=== PATIENT | female | born 1975 | race Caucasian/White ===

== ENCOUNTER 2019-09-18 06:53 | Day surgery (SDC) | payer OTHER ==
[2019-09-18] MEDS ORDERED: Midazolam 1 MG/ML 2 ML SDV ONE (07:06)
[2019-09-18] MEDS ORDERED: Propofol 200 MG/20 ML SDV ONE (07:06)
[2019-09-18] MEDS ORDERED: fentaNYL 250 MCG/5 ML SDV ONE (07:06)
[2019-09-18] MEDS ORDERED: Rocuronium 100 MG/10 ML Syringe ONE (07:07)
[2019-09-18] MEDS ORDERED: Glycopyrrolate 0.2 MG/ML SDV ONE (07:07)
[2019-09-18] MEDS ORDERED: Neostigmine Methylsulfate 1 MG/ML 5 ML Syringe ONE (07:07)
[2019-09-18] MEDS ORDERED: Sodium Chloride 0.9% 20 ML ONE (07:07)
[2019-09-18] MEDS ORDERED: Phenylephrine/Normal Saline 100 MCG/ML 10 ML Syringe ONE (07:07)
[2019-09-18] MEDS ORDERED: ePHEDrine 50 MG/ML SDV ONE (07:07)
[2019-09-18] MEDS: Lactated Ringers 1,000 ML IV SCH ×3 (07:17→21:34)
[2019-09-18] MEDS ORDERED: Fluorescein 5 ML Vial ONE (07:31)
[2019-09-18] MEDS ORDERED: Scopolamine 1.5 MG Transdermal Patch TRDERM PRN (07:32)
[2019-09-18] MEDS ORDERED: 50% Dextrose in Water 50 ML Syringe IVPUSH PRN (07:33)
[2019-09-18] MEDS ORDERED: fentaNYL 100 MCG/2 ML SDV IVPUSH PRN ×2 (07:33→11:51)
[2019-09-18] MEDS ORDERED: Atropine 0.1 MG/ML 10 ML Syringe IVPUSH PRN ×2 (07:33)
[2019-09-18] MEDS ORDERED: EPINEPHrine 1:10,000 1 MG/10 ML Syringe IVPUSH PRN (07:33)
[2019-09-18] MEDS ORDERED: Albuterol 0.083% 2.5 MG/3 ML Neb Soln NEB PRN (07:33)
[2019-09-18] MEDS ORDERED: Naloxone 0.4 MG/ML Syringe IVPUSH PRN (07:33)
--- NOTE | 2019-09-18 07:34 | PCM.PREANE ---
Preanesthetic Assessment - Anesthesia/Transfusion/Family Hx Anesthesia History: Prior Anesthesia Without Reaction Family History of Anesthesia Reaction: No Transfusion History: No Prior Transfusion(s) Intubation History: Unknown - Review of Systems General: No Symptoms Pulmonary: No Symptoms Cardiovascular: No Symptoms Gastrointestinal: No Symptoms Neurological: No Symptoms Other: Reports: None - Physical Assessment Height: 5 ft 2 in Weight: 104.326 kg ASA Class: 2 Mental Status: Alert & Oriented x3 Airway Class: Mallampati = 2 Dentition: Reports: Normal Dentition Thyro-Mental Finger Breadths: 2 Mouth Opening Finger Breadths: 2 ROM/Head Extension: Full Lungs: Clear to Auscultation, Normal Respiratory Effort Cardiovascular: Regular Rate, Regular Rhythm - Allergies Allergies/Adverse Reactions: Allergies Allergy/AdvReac Type Severity Reaction Status Date / Time No Known Allergies Allergy Verified 09/14/19 14:36 - Blood Blood Available: No - Anesthesia Plan Pre-Op Medication Ordered: None - Acknowledgements Anesthesia Type Planned: General Anesthesia Pt an Appropriate Candidate for the Planned Anesthesia: Yes Alternatives and Risks of Anesthesia Discussed w Pt/Guardian: Yes Pt/Guardian Understands and Agrees with Anesthesia Plan: Yes PreAnesthesia Questionnaire HEENT History: Reports: None Cardiovascular History: Reports: Other (See Below) Other Cardiovascular History: varicose veins Respiratory History: Reports: None Gastrointestinal History: Reports: None Genitourinary History: Reports: None 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 OB/BYN History: uterovaginal prolapse Musculoskeletal History: Reports: None Neurological History: Reports: None Psychiatric History: Reports: Anxiety, Depression Endocrine/Metabolic History: Reports: Obesity/BMI 30+ Hematologic History: Reports: None Immunologic History: Reports: None Oncologic (Cancer) History: Reports: None Dermatologic History: Reports: None - Past Surgical History Head Surgeries/Procedures: Reports: None HEENT Surgical History: Reports: Adenoidectomy, Tonsillectomy Cardiovascular Surgical History: Reports: None Respiratory Surgical History: Reports: None GI Surgical History: Reports: Bariatric Procedure, Other (See Below) Other GI Surgeries/Procedures: gastric sleeve Female Surgical History: Reports: None Endocrine Surgical History: Reports: None Neurological Surgical History: Reports: None Musculoskeletal Surgical History: Reports: None Oncologic Surgical History: Reports: None Dermatological Surgical History: Reports: None - SUBSTANCE USE Smoking Status *Q: Never Smoker Recreational Drug Use History: No - HOME MEDS Home Medications: Home Meds Ascorbic Acid [Vitamin C] 250 mg CHEW DAILY 09/14/19 [History] Biotin 5,000 mcg PO DAILY 09/14/19 [History] Cholecalciferol (Vitamin D3) [Vitamin D3] 2,000 units PO DAILY 09/14/19 [History ] Multivitamin [Multivitamins] 1 tab PO DAILY 09/14/19 [History] Vitamin B Complex 1 tab PO DAILY 09/14/19 [History] buPROPion HCl [Wellbutrin Xl] 300 mg PO DAILY 09/14/19 [History] - CURRENT (IN HOUSE) MEDS Current Meds: Current Medications Lactated Ringer's (Ringers, Lactated) 1,000 mls @ 125 mls/hr IV ASDIRECTED IRMA Discontinued Medications Ephedrine Sulfate (Ephedrine Sulfate) Confirm Administered Dose 50 mg .ROUTE .STK-MED ONE Stop: 09/18/19 07:08 Fentanyl (Sublimaze) Confirm Administered Dose 250 mcg .ROUTE .STK-MED ONE Stop: 09/18/19 07:07 Glycopyrrolate (Robinul) Confirm Administered Dose 0.6 mg .ROUTE .STK-MED ONE Stop: 09/18/19 07:08 Sodium Chloride (Normal Saline) Confirm Administered Dose 20 mls @ as directed .ROUTE .STK-MED ONE Stop: 09/18/19 07:08 Midazolam HCl (Versed 1 Mg/Ml) Confirm Administered Dose 2 mg .ROUTE .STK-MED ONE Stop: 09/18/19 07:07 Neostigmine Methylsulfate (Neostigmine) Confirm Administered Dose 5 mg .ROUTE .STK-MED ONE Stop: 09/18/19 07:08 Phenylephrine HCl (Phenylephrine In Ns 100 Mcg/Ml) Confirm Administered Dose 1 mg .ROUTE .STK-MED ONE Stop: 09/18/19 07:08 Propofol (Diprivan 20 Ml) Confirm Administered Dose 200 mg .ROUTE .STK-MED ONE Stop: 09/18/19 07:07 Rocuronium [place]chel[place] (Zemuron) Confirm Administered Dose 100 mg .ROUTE .STK-MED ONE Stop: 09/18/19 07:08 Succinylcholine Chloride (Succinylcholine Chloride) Confirm Administered Dose 200 mg .ROUTE .STK-MED ONE Stop: 09/18/19 07:08
[2019-09-18 07:54] LABS: BLOOD UREA NITROGEN,BUN 6 mg/dL (7.0-18.0); CARBON DIOXIDE,CO2 26.1 mmol/L (21.0-32.0); CHLORIDE,CL 105 mmol/L (98-107); GLUCOSE RANDOM 91 mg/dL (74-106); POTASSIUM,K 3.8 mmol/L (3.5-5.1); SODIUM,NA 141 mmol/L (136-145)
[2019-09-18] MEDS ORDERED: Furosemide 40 MG/4 ML VIAL ONE (07:55)
[2019-09-18] MEDS ORDERED: fentaNYL 100 MCG/2 ML SDV ONE ×2 (09:22→10:32)
[2019-09-18] MEDS ORDERED: Ondansetron 4 MG/2 ML SDV ONE (10:36)
[2019-09-18] MEDS ORDERED: Dexamethasone 4 MG/ML 5 ML MDV ONE (10:36)
--- NOTE | 2019-09-18 11:32 | PCM.OPNOTE ---
- General Post-Op/Procedure Note Date of Surgery/Procedure: 09/18/19 Operative Procedure(s): total vaginal hysterectomy, vaginal vault suspension to uterosacral ligament, posterior colporrhaphy, perineorrhaphy, cystoscopy and left labial revision. Findings: 3rd degree uterine prolapse, 3rd degree rectocele, gaping introitus, asymmetric labia due to trauma. On cystoscopy there is no evidence of trauma to the bladder mucosa. There is copious flow of bright green urine from bilateral ureteral orifices. Tubes and ovaries appear normal. Pre Op Diagnosis: Incomplete uterovaginal prolapse, labial hypertrophy Post-Op Diagnosis: Same Anesthesia Technique: General ET Tube Primary Surgeon: Deya Edward Secondary Surgeon: Christopher Watt Anesthesia Provider: Donaldo Acharya Tube Inspector: Margy Khan Pathology: uterus, vaginal mucosa/perineal skin Fluid Replacement, Intraop: 2,300 Output, Urine Amount: 700 EBL in mLs: 350 Complications: None Known. Condition: Good Free Text/Narrative:: Intake & Output 09/17/19 09/18/19 09/18/19 22:59 06:59 14:59 Output Total 700 Balance -700
[2019-09-18] MEDS ORDERED: Ondansetron 4 MG/2 ML SDV IVPUSH PRN (11:35)
[2019-09-18] MEDS ORDERED: Promethazine 25 MG/ML SDV IM PRN (11:35)
[2019-09-18] MEDS ORDERED: HYDROmorphone 2 MG/ML Syringe ONE (11:49)
[2019-09-18] MEDS: HYDROmorphone 2 MG/ML Syringe IVPUSH ONE ×2 (11:52→12:05)
--- NOTE | 2019-09-18 12:28 | PCM.POSTAN ---
POST ANESTHESIA ASSESSMENT - MENTAL STATUS Mental Status: Alert, Oriented - VITAL SIGNS Vital Signs: Last Vital Signs Temp 36.1 C 09/18/19 11:24 Pulse 54 L 09/18/19 12:15 Resp 12 09/18/19 12:15 BP 118/69 09/18/19 12:15 Pulse Ox 96 09/18/19 12:15 - RESPIRATORY Respiratory Status: Respiratory Rate WNL, Airway Patent, O2 Saturation Stable - CARDIOVASCULAR CV Status: Pulse Rate WNL, Blood Pressure Stable - GASTROINTESTINAL GI Status: No Symptoms - PAIN Pain Score: 4 - POST OP HYDRATION Hydration Status: Adequate & Stable - OBSERVATIONS Free Text/Narrative:: No anesthesia problems
[2019-09-18] MEDS: Morphine 4 MG/ML Syringe IVPUSH PRN ×4 (13:22→23:21)
--- NOTE | 2019-09-18 14:12 | OR ---
SURGEON: Deya Edward M.D. DATE OF PROCEDURE: 09/18/2019 PREOPERATIVE DIAGNOSIS: Incomplete uterovaginal prolapse with rectocele and symptomatic labial hypertrophy. POSTOPERATIVE DIAGNOSIS: Incomplete uterovaginal prolapse with rectocele and symptomatic labial hypertrophy. PROCEDURES: Total vaginal hysterectomy with vaginal vault suspension to the uterosacral ligament, posterior colporrhaphy, perineorrhaphy, cystoscopy, and left labial reduction. COMPLICATIONS: None known. DISPOSITION: Stable to recovery. ESTIMATED BLOOD LOSS: 350 mL. FLUIDS: 2300 mL of crystalloid. URINE OUTPUT: 700 mL. FINDINGS: Third-degree uterine prolapse, 2nd- to 3rd-degree cystocele, 3rd- to 4th-degree rectocele with a gaping introitus. Fairly prominent left labial hypertrophy measuring greater than 7 cm, the right labia measures 4 cm. Upon cystoscopy, there was no evidence of any trauma to the bladder mucosa. There was copious flow of bright green urine from bilateral ureteral orifices. Upon inspection of the tubes and ovaries, they did appear normal. COMPLICATIONS: None known. DISPOSITION: Stable to recovery. BRIEF HISTORY: This is a 43-year-old female. She is G4, P4. She has been followed with pelvic organ prolapse. She has been doing physical therapy, pelvic floor exercises. She has been working on weight loss with good success. She states that she feels discomfort and irritation during intercourse. The external irritation is primarily from her enlarged labia. This also causes her discomfort when she is active and problems with pads and would like to have this addressed at the time of surgery. She continues to have pelvic pressure, discomfort of intercourse, and bowel dysfunction with difficulty initiating bowel movements. Due to all of these symptoms, she would like to proceed with surgical intervention. She has declined a pessary. The plan is to proceed with a total vaginal hysterectomy, posterior colporrhaphy, vaginal vault suspension, cystoscopy, and left labial reduction with a possibility of anterior colporrhaphy. Risks were discussed including bleeding; infection; injury to bowel, bladder, blood vessels, or other organs; risk of thromboembolic event; risk of change in sexual function; risk of dyspareunia; risk of recurrence of approximately 30%; risk of regret related to inability to conceive in the future. Understanding all these risks, she does desire to proceed. DESCRIPTION OF PROCEDURE: With the patient in dorsal lithotomy position, under adequate general endotracheal anesthesia, the perineum and vagina were prepped with Betadine and draped in the usual fashion for vaginal surgery. SCDs were in place. Sequeira catheter had been placed. An appropriate time-out was held. She received 2 g of Ancef IV. A weighted speculum was placed posteriorly and right angle retractors were placed to retract the vagina. The cervix was grasped with a Mc tenaculum and circumscribed using electrocautery. The vaginal mucosa was pushed away from the cervix. The posterior cul-de-sac was entered sharply. Zak-Auvard speculum was placed posteriorly. The anterior cul-de-sac was entered sharply without any difficulty and a right-angle retractor was placed anteriorly. She had good blood supply to all of her tissues, therefore, each pedicle for the hysterectomy was doubly clamped. Therefore, I doubly clamped, cut, and ligated the uterosacral ligaments bilaterally using a simple ligature followed by Khushboo ligature of 2-0 Polysorb. Three additional pedicles were taken on each side, doubly clamping, cutting, and ligating with a simple ligature followed by a Khushboo ligature of 2-0 Polysorb until the utero-ovarian ligaments were identified. These were doubly clamped, cut, and ligated using a free tie followed by a Khushboo ligature of 2-0 Polysorb. These were retained and inspected and were hemostatic. The pedicles of the broad ligament were inspected and were hemostatic. The uterosacral ligaments had been retained. Placing Toña clamps at the level of the uterosacral ligament, the uterosacral ligaments were identified more cephalad within the pelvis, they were palpated with a finger. The bowel was retracted and three sutures of 2-0 Ethibond were placed in the right and the left uterosacral ligaments with a simple tie placed in each. Cystoscopy was then performed after IV fluorescein had been given and with tension on each of the uterosacral ligaments. There was copious flow of bright green urine from bilateral ureteral orifices. There was also no evidence of any trauma to the bladder mucosa. This being completed, the bladder was drained. Sequeira catheter was replaced. The anterior vagina was very foreshortened, and I felt that with support of the apex, she did not require an anterior colporrhaphy. Again, the posterior vagina was also fairly short, and therefore, rather than proceeding directly with the posterior colporrhaphy, I felt it was most beneficial to proceed with suspending the vaginal apex to the uterosacral ligament, so the anterior and posterior arms were passed through the anterior muscularis layer of the vaginal cuff and the posterior arm to the posterior layer, placing the most cephalad stitch in the midline. Once all six of the sutures had been placed to the anterior and posterior vaginal cuff, they were tied, and there was excellent support of the vaginal mucosa. The overlying vaginal mucosa was then closed with a running lock suture of 0 Polysorb. This being completed, attention was then turned to the perineum where a triangular incision was made in the perineum, undermined with Metzenbaum scissors, and trimmed. Hydrodissection was then performed beneath the posterior vaginal mucosa, which was incised in the midline using Metzenbaum scissors up to approximately 2 cm from the vaginal cuff. The muscularis layer was then from the overlying vaginal mucosa and reapproximated in the midline using multiple interrupted mattress sutures of 2-0 Polysorb. Again, the vaginal mucosa was not trimmed due to the very short vagina and therefore the vaginal mucosa was then closed with a running lock suture of 0 Polysorb. This extended into the perineum to reapproximate the deep perineal tissue, bringing together the gaping introitus. The left labia minora was significantly hypertrophied, measuring greater than 7 cm and in fact inserting immediately adjacent to the point of closure of the introitus. Therefore, it was undermined and slightly released. The introitus was then closed with a running suture of 3-0 Monocryl followed by a subcuticular suture of the same. This being completed, there was excellent depth and support of the vagina. There was no remaining cystocele or rectocele. Attention was then turned to the left labia. It was carefully measured to match the opposing size and the desired reduction was traced with a marker and incised using a 15 blade scalpel. Using Metzenbaum scissors, it was further dissected leaving the remaining left labia symmetric with the right labia and in a normal size and contour. The deep tissue of the labia was then reapproximated using a running suture of 4-0 Monocryl. A subcuticular suture of the 4-0 Monocryl was utilized to reapproximate the skin. The vagina was then packed. Final sponge, needle, and instrument counts were reported as correct. There were no known complications. The patient was transferred to Recovery in good condition. KAVEH PEARCE /[id number]
[2019-09-18] MEDS: Acetaminophen/oxyCODONE 325-5 MG Tab PO PRN ×2 (16:36→21:41)
[2019-09-19] MEDS: Acetaminophen/oxyCODONE 325-5 MG Tab PO PRN ×3 (02:53→11:56)
[2019-09-19] MEDS: Morphine 4 MG/ML Syringe IVPUSH PRN ×4 (03:10→13:39)
[2019-09-19] MEDS: Lactated Ringers 1,000 ML IV SCH (05:36)
[2019-09-19 06:38] LABS: BLOOD UREA NITROGEN,BUN 5 mg/dL (7.0-18.0); CARBON DIOXIDE,CO2 27.1 mmol/L (21.0-32.0); CHLORIDE,CL 104 mmol/L (98-107); GLUCOSE RANDOM 94 mg/dL (74-106); POTASSIUM,K 4.2 mmol/L (3.5-5.1); SODIUM,NA 138 mmol/L (136-145)
[2019-09-19] MEDS ORDERED: Ketorolac 30 MG/ML SDV IVPUSH PRN (07:11)
--- NOTE | 2019-09-19 07:11 | PCM.SURGPN ---
- General Info Date of Service: 09/19/19 Date of Surgery/Procedure: 09/18/19 POD#: 1 Post-Op Diagnosis: incomplete uterovaginal prolapse. Functional Status: Reports: Pain Controlled, Tolerating Diet, Ambulating. Denies: Urinating (catheter just taken out.) - Review of Systems General: Reports: No Symptoms HEENT: Reports: No Symptoms Pulmonary: Reports: No Symptoms Cardiovascular: Reports: No Symptoms Gastrointestinal: Reports: No Symptoms Genitourinary: Reports: No Symptoms Musculoskeletal: Reports: No Symptoms Skin: Reports: No Symptoms Neurological: Reports: No Symptoms Psychiatric: Reports: No Symptoms - Patient Data Vitals - Most Recent: Last Vital Signs Temp 36.8 C 09/19/19 03:36 Pulse 64 09/19/19 03:36 Resp 19 09/19/19 03:36 BP 116/59 L 09/19/19 03:36 Pulse Ox 96 09/19/19 03:36 Weight - Most Recent: 104.326 kg I&O - Last 24 Hours: Intake & Output 09/18/19 09/19/19 09/19/19 22:59 06:59 14:59 Intake Total 675 1419 Output Total 300 850 Balance 375 569 Lab Results Last 24 Hrs: Laboratory Results - last 24 hr 09/18/19 09/18/19 09/18/19 Range/Units 07:17 07:17 07:17 WBC 7.69 (4.0-11.0) K/uL RBC 4.63 (4.30-5.90) M/uL Hgb 12.5 (12.0-16.0) g/dL Hct 39.1 (36.0-46.0) % MCV 84.4 (80.0-98.0) fL MCH 27.0 (27.0-32.0) pg MCHC 32.0 (31.0-37.0) g/dL RDW Std Deviation 43.9 (28.0-62.0) fl RDW Coeff of Mallorie 14 (11.0-15.0) % Plt Count 293 (150-400) K/uL MPV 12.10 H (7.40-12.00) fL Neut % (Auto) (48.0-80.0) % Lymph % (Auto) (16.0-40.0) % Citrus % (Auto) (0.0-15.0) % Eos % (Auto) (0.0-7.0) % Baso % (Auto) (0.0-1.5) % Neut # (Auto) (1.4-5.7) K/uL Lymph # (Auto) (0.6-2.4) K/uL Citrus # (Auto) (0.0-0.8) K/uL Eos # (Auto) (0.0-0.7) K/uL Baso # (Auto) (0.0-0.1) K/uL Nucleated RBC % 0.0 /100WBC Nucleated RBCs # 0 K/uL Sodium 141 (136-145) mmol/L Potassium 3.8 (3.5-5.1) mmol/L Chloride 105 (98-107) mmol/L Carbon Dioxide 26.1 (21.0-32.0) mmol/L BUN 6 L (7.0-18.0) mg/dL Creatinine 0.7 (0.6-1.0) mg/dL Est Cr Clr Drug Dosing 82.80 mL/min Estimated GFR (MDRD) > 60.0 ml/min Glucose 91 (74-106) mg/dL Calcium 8.5 (8.5-10.1) mg/dL HCG, Qual NEGATIVE (NEG) Blood Type Antibody Screen 09/18/19 09/19/19 09/19/19 Range/Units 07:17 06:05 06:05 WBC 13.24 H (4.0-11.0) K/uL RBC 4.07 L (4.30-5.90) M/uL Hgb 11.1 L (12.0-16.0) g/dL Hct 35.1 L (36.0-46.0) % MCV 86.2 (80.0-98.0) fL MCH 27.3 (27.0-32.0) pg MCHC 31.6 (31.0-37.0) g/dL RDW Std Deviation 44.9 (28.0-62.0) fl RDW Coeff of Mallorie 14 (11.0-15.0) % Plt Count 298 (150-400) K/uL MPV 12.10 H (7.40-12.00) fL Neut % (Auto) 66.9 (48.0-80.0) % Lymph % (Auto) 23.8 (16.0-40.0) % Citrus % (Auto) 9.1 (0.0-15.0) % Eos % (Auto) 0.1 (0.0-7.0) % Baso % (Auto) 0.1 (0.0-1.5) % Neut # (Auto) 8.9 H (1.4-5.7) K/uL Lymph # (Auto) 3.2 H (0.6-2.4) K/uL Citrus # (Auto) 1.2 H (0.0-0.8) K/uL Eos # (Auto) 0.0 (0.0-0.7) K/uL Baso # (Auto) 0.0 (0.0-0.1) K/uL Nucleated RBC % 0.0 /100WBC Nucleated RBCs # 0 K/uL Sodium 138 (136-145) mmol/L Potassium 4.2 (3.5-5.1) mmol/L Chloride 104 (98-107) mmol/L Carbon Dioxide 27.1 (21.0-32.0) mmol/L BUN 5 L (7.0-18.0) mg/dL Creatinine 0.8 (0.6-1.0) mg/dL Est Cr Clr Drug Dosing 72.45 mL/min Estimated GFR (MDRD) > 60.0 ml/min Glucose 94 (74-106) mg/dL Calcium 8.3 L (8.5-10.1) mg/dL HCG, Qual (NEG) Blood Type A POSITIVE Antibody Screen NEGATIVE Med Orders - Current: Current Medications Lactated Ringer's (Ringers, Lactated) 1,000 mls @ 125 mls/hr IV ASDIRECTED [facility] Last Admin: 09/19/19 05:36 Dose: 125 mls/hr Morphine Sulfate (Morphine) 4 mg IVPUSH Q2H PRN PRN Reason: Pain (severe 7-10) Last Admin: 09/19/19 05:41 Dose: 4 mg Ondansetron HCl (Zofran) 4 mg IVPUSH Q6H PRN PRN Reason: Nausea/Vomiting Oxycodone/Acetaminophen (Percocet 325-5 Mg) 1 tab PO Q4H PRN PRN Reason: Pain (moderate 4-6) Last Admin: 09/19/19 06:52 Dose: 1 tab Oxycodone/Acetaminophen (Percocet 325-5 Mg) 2 tab PO Q4H PRN PRN Reason: Pain (moderate 4-6) Last Admin: 09/18/19 16:36 Dose: 2 tab Promethazine HCl (Phenergan) 25 mg IM Q6H PRN PRN Reason: Nausea/Vomiting Scopolamine (Transderm-Scop) 1.5 mg TRDERM Q72H PRN PRN Reason: Nausea Last Admin: 09/18/19 07:35 Dose: 1.5 mg Discontinued Medications Albuterol (Proventil Neb Soln) 2.5 mg NEB ONETIME PRN PRN Reason: Wheezing Atropine Sulfate (Atropine 0.1 Mg/Ml) 0.5 mg IVPUSH ASDIRECTED PRN PRN Reason: Hypo-perfusion Stop: 09/18/19 19:33 Atropine Sulfate (Atropine 0.1 Mg/Ml) 1 mg IVPUSH ASDIRECTED PRN PRN Reason: Hypo-Perfusion Dexamethasone (Dexamethasone) Confirm Administered Dose 20 mg .ROUTE .STK-MED ONE Stop: 09/18/19 10:37 Dextrose/Water (Dextrose 50% In Water) 50 ml IVPUSH ASDIRECTED PRN PRN Reason: Hypoglycemia Ephedrine Sulfate (Ephedrine Sulfate) Confirm Administered Dose 50 mg .ROUTE .STK-MED ONE Stop: 09/18/19 07:08 Epinephrine HCl (Epinephrine 1:10,000) 1 mg IVPUSH ASDIRECTED PRN PRN Reason: ACLS Guidelines Fentanyl (Sublimaze) Confirm Administered Dose 250 mcg .ROUTE .STK-MED ONE Stop: 09/18/19 07:07 Fentanyl (Sublimaze) 50 mcg IVPUSH Q5M PRN PRN Reason: Pain Fentanyl (Sublimaze) Confirm Administered Dose 100 mcg .ROUTE .STK-MED ONE Stop: 09/18/19 09:23 Fentanyl (Sublimaze) Confirm Administered Dose 100 mcg .ROUTE .STK-MED ONE Stop: 09/18/19 10:33 Fentanyl (Sublimaze) 50 - 100 mcg IVPUSH Q5M PRN PRN Reason: Pain (severe 7-10) Fluorescein Sodium (Ak-Fluor) Confirm Administered Dose 5 ml .ROUTE .STK-MED ONE Stop: 09/18/19 07:32 Furosemide (Lasix) Confirm Administered Dose 40 mg .ROUTE .STK-MED ONE Stop: 09/18/19 07:56 Glycopyrrolate (Robinul) Confirm Administered Dose 0.6 mg .ROUTE .[facility]-MED ONE Stop: 09/18/19 07:08 Hydromorphone HCl (Dilaudid) 2 mg IVPUSH ONETIME ONE Stop: 09/18/19 11:51 Last Admin: 09/18/19 12:05 Dose: 1 mg Hydromorphone HCl (Dilaudid) Confirm Administered Dose 2 mg .ROUTE .STK-MED ONE Stop: 09/18/19 11:50 Last Admin: 09/18/19 13:30 Dose: Not Given Sodium Chloride (Normal Saline) Confirm Administered Dose 20 mls @ as directed .ROUTE .[facility]-MED ONE Stop: 09/18/19 07:08 Midazolam HCl (Versed 1 Mg/Ml) Confirm Administered Dose 2 mg .ROUTE .[facility]-MED ONE Stop: 09/18/19 07:07 Naloxone HCl (Narcan) 0.1 mg IVPUSH ASDIRECTED PRN PRN Reason: Respiratory Depression Neostigmine Methylsulfate (Neostigmine) Confirm Administered Dose 5 mg .ROUTE .ST-MED ONE Stop: 09/18/19 07:08 Ondansetron HCl (Zofran) Confirm Administered Dose 4 mg .ROUTE .STK-MED ONE Stop: 09/18/19 10:37 Phenylephrine HCl (Phenylephrine In Ns 100 Mcg/Ml) Confirm Administered Dose 1 mg .ROUTE .[facility]-MED ONE Stop: 09/18/19 07:08 Propofol (Diprivan 20 Ml) Confirm Administered Dose 200 mg .ROUTE .STK-MED ONE Stop: 09/18/19 07:07 Rocuronium [place] (Zemuron) Confirm Administered Dose 100 mg .ROUTE .STK-MED ONE Stop: 09/18/19 07:08 Succinylcholine Chloride (Succinylcholine Chloride) Confirm Administered Dose 200 mg .ROUTE .[facility]-MED ONE Stop: 09/18/19 07:08 - Exam Wound/Incisions: Other (vaginal packing removed minimal discharge.) General: Alert, Oriented HEENT: Pupils Equal Neck: Supple Lungs: Normal Respiratory Effort GI/Abdominal Exam: Soft, Non-Tender, No Distention Extremities: Normal Inspection, Non-Tender, No Pedal Edema Skin: Warm, Dry, Intact Neurological: No New Focal Deficit Psy/Mental Status: Alert, Normal Affect, Normal Mood Sepsis Event Note - Evaluation Sepsis Screening Result: No Definite Risk - Focused Exam Vital Signs: Vital Signs Temp Pulse Resp BP Pulse Ox 09/19/19 03:36 36.8 C 64 19 116/59 L 96 09/18/19 23:31 37.1 C 61 18 124/66 96 09/18/19 19:30 37.0 C 61 16 116/57 L 97 Date Exam was Performed: 09/19/19 Time Exam was Performed: 07:08 - Problem List & Annotations (1) Incomplete uterovaginal prolapse SNOMED Code(s): 445106140 Code(s): N81.2 - INCOMPLETE UTEROVAGINAL PROLAPSE Status: Acute Current Visit: Yes - Problem List Review Problem List Initiated/Reviewed/Updated: Yes - My Orders Last 24 Hours: Active Orders 24 hr Category Date Time Status Patient Status [ADT] Routine ADT 09/18/19 11:35 Active Antiembolic Devices [RC] PER UNIT ROUTINE Care 09/18/19 06:33 Active Antiembolic Devices [RC] PER UNIT ROUTINE Care 09/18/19 11:36 Active Notify Provider Intake and Out [RC] ASDIRECTED Care 09/18/19 11:35 Active Notify Provider Vital Signs [RC] ASDIRECTED Care 09/18/19 11:35 Active Oxygen Therapy [RC] ASDIRECTED Care 09/18/19 11:35 Active RT Incentive Spirometry [RC] Q2HWA Care 09/18/19 11:35 Active Up ad Lina [RC] PER UNIT ROUTINE Care 09/18/19 11:35 Active Urinary Catheter Removal [RC] Per Unit Routine Care 09/19/19 06:00 Active Vital Signs [RC] Q4H Care 09/18/19 07:33 Active Regular Diet [DIET] Diet 09/18/19 Dinner Active Acetaminophen/oxyCODONE [Percocet 325-5 MG] Med 09/18/19 11:35 Active 1 tab PO Q4H PRN Acetaminophen/oxyCODONE [Percocet 325-5 MG] Med 09/18/19 11:35 Active 2 tab PO Q4H PRN Lactated Ringers [Ringers, Lactated] 1,000 ml Med 09/18/19 06:45 Active IV ASDIRECTED Morphine Med 09/18/19 11:35 Active 4 mg IVPUSH Q2H PRN Ondansetron [Zofran] Med 09/18/19 11:35 Active 4 mg IVPUSH Q6H PRN Promethazine [Phenergan] Med 09/18/19 11:35 Active 25 mg IM Q6H PRN Scopolamine [Transderm-Scop] Med 09/18/19 07:32 Active 1.5 mg TRDERM Q72H PRN Remove Vaginal Packing [OM.PC] Per Unit Routine Oth 09/18/19 11:36 Ordered SCD [Sequential Compression Device] [OM.PC] Routine Oth 09/18/19 06:33 Ordered Sequential Compression Device [OM.PC] Per Unit Routine Oth 09/18/19 11:35 Ordered Resuscitation Status Routine Resus Stat 09/18/19 11:35 Ordered Medication Orders Lactated Ringer's (Ringers, Lactated) 1,000 mls @ 125 mls/hr IV ASDIRECTED [facility] Last Admin: 09/19/19 05:36 Dose: 125 mls/hr Infusion: 09/19/19 05:34 Dose: 125 mls/hr Admin: 09/18/19 21:34 Dose: 125 mls/hr Infusion: 09/18/19 21:12 Dose: 125 mls/hr Admin: 09/18/19 13:12 Dose: 125 mls/hr Infusion: 09/18/19 13:12 Dose: 125 mls/hr Admin: 09/18/19 07:17 Dose: 125 mls/hr Morphine Sulfate (Morphine) 4 mg IVPUSH Q2H PRN PRN Reason: Pain (severe 7-10) Last Admin: 09/19/19 05:41 Dose: 4 mg Admin: 09/19/19 03:10 Dose: 4 mg Admin: 09/18/19 23:21 Dose: 4 mg Admin: 09/18/19 19:46 Dose: 4 mg Admin: 09/18/19 15:41 Dose: 4 mg Admin: 09/18/19 13:22 Dose: 4 mg Ondansetron HCl (Zofran) 4 mg IVPUSH Q6H PRN PRN Reason: Nausea/Vomiting Oxycodone/Acetaminophen (Percocet 325-5 Mg) 1 tab PO Q4H PRN PRN Reason: Pain (moderate 4-6) Last Admin: 09/19/19 06:52 Dose: 1 tab Admin: 09/19/19 02:53 Dose: 1 tab Admin: 09/18/19 21:41 Dose: 1 tab Oxycodone/Acetaminophen (Percocet 325-5 Mg) 2 tab PO Q4H PRN PRN Reason: Pain (moderate 4-6) Last Admin: 09/18/19 16:36 Dose: 2 tab Promethazine HCl (Phenergan) 25 mg IM Q6H PRN PRN Reason: Nausea/Vomiting Scopolamine (Transderm-Scop) 1.5 mg TRDERM Q72H PRN PRN Reason: Nausea Last Admin: 09/18/19 07:35 Dose: 1.5 mg - Assessment Assessment (Free Text/Narrative):: POD#1 after vaginal hysterectomy with vaginal vault suspension, posterior colporrhaphy, perineorrhaphy and labial reduction. Stable, tolerating po and pain moderately well controlled on oral medications, which she is tolerating. - Plan Plan (Free Text/Narrative):: Will give ketorolac to improve pain control. If tolerates regular diet and voids dismiss to home. Discharge instruction given.
--- NOTE | 2019-09-19 11:21 | PCM48HPAN ---
Post Anesthesia Note - EVALUATION WITHIN 48HRS OF ANESTHETIC Vital Signs in Normal Range: Yes Patient Participated in Evaluation: Yes Respiratory Function Stable: Yes Airway Patent: Yes Cardiovascular Function Stable: Yes Hydration Status Stable: Yes Pain Control Satisfactory: Yes Nausea and Vomiting Control Satisfactory: Yes Mental Status Recovered: Yes Vital Signs: Last Vital Signs Temp 37.1 C 09/19/19 07:00 Pulse 60 09/19/19 07:00 Resp 16 09/19/19 07:00 BP 120/57 L 09/19/19 07:00 Pulse Ox 95 09/19/19 07:00
== END 2019-09-19 14:00 | disposition home or self-care (01) ==
LOC: MW.SDS 06:53 → MW.MS 11:35 → MW.SDS 09-19 14:00
PROVIDERS: ATTEND Obstetrics & Gynecology
DX: N81.3 Complete uterovaginal prolapse (principal); N81.6 Rectocele; N90.60 Unspecified hypertrophy of vulva; N80.0 Endometriosis of uterus; R23.4 Changes in skin texture; F32.9 Major depressive disorder, single episode, unspecified; E66.9 Obesity, unspecified; Z68.41 Body mass index [BMI] 40.0-44.9, adult; Z79.899 Other long term (current) drug therapy
CPT/HCPCS: 36415; 56620; 57250; 57283; 58260; 80048; 84703; 85025; 85027; 86850; 86900; 86901; A9270; J0330; J1100; J1170; J1885; J1940; J2250; J2270; J2370; J2405; J2704; J3010; J3490; J7120; 00944; 88307

== ENCOUNTER 2021-12-19 07:25 | Day surgery (SDC) | payer OTHER ==
[~2021-12-19 07:25] MED LIST: Lactated Ringers 1,000 ML IV SCH; Propofol 200 MG/20 ML SDV ONE; Sodium Chloride 0.9% 10 ML Syringe FLUSH PRN; Sodium Chloride 0.9% 2.5 ML Syringe FLUSH PRN; Sodium Chloride 0.9% 20 ML SDV IV PRN
[2021-12-19] MEDS ORDERED: Midazolam 1 MG/ML 2 ML SDV ONE (08:38)
[2021-12-19] MEDS ORDERED: Ondansetron 4 MG/2 ML SDV ONE (08:38)
== END 2021-12-19 10:10 | disposition home or self-care (01) ==
LOC: MW.SDS 07:25
PROVIDERS: ATTEND Surgery
DX: Z12.11 Encounter for screening for malignant neoplasm of colon (principal); F32.A Depression, unspecified; F98.8 Other specified behavioral and emotional disorders with onset usually occurring in childhood and adolescence; E66.01 Morbid (severe) obesity due to excess calories; Z68.42 Body mass index [BMI] 45.0-49.9, adult; Z90.3 Acquired absence of stomach [part of]; Z79.899 Other long term (current) drug therapy; Z86.16 Personal history of COVID-19; Z90.49 Acquired absence of other specified parts of digestive tract; Z90.89 Acquired absence of other organs; Z90.710 Acquired absence of both cervix and uterus; Z80.0 Family history of malignant neoplasm of digestive organs
CPT/HCPCS: 45378; J2250; J2405; J2704; J7120; 00812

== ENCOUNTER 2022-08-16 08:32 | Emergency (ER) | payer OTHER ==
[2022-08-16] MEDS ORDERED: Acetaminophen 325 MG Tab PO ONE (09:05)
[2022-08-16] MEDS ORDERED: Ibuprofen 400 MG Tab PO ONE (09:05)
== END 2022-08-16 12:03 | disposition home or self-care (01) ==
LOC: MW.ED 08:32
DX: M25.572 Pain in left ankle and joints of left foot (principal); E66.9 Obesity, unspecified; Z68.41 Body mass index [BMI] 40.0-44.9, adult
CPT/HCPCS: 73610; 73630; 99283; A9270

== ENCOUNTER 2023-12-27 20:17 | Emergency (ER) | payer OTHER ==
[2023-12-27] MEDS: Sodium Chloride 0.9% 1,000 ML IV ONE (20:59)
[2023-12-27] MEDS: Ondansetron 4 MG/2 ML SDV IVPUSH ONE (20:59)
[2023-12-27] MEDS: Ketorolac 30 MG/ML SDV IVPUSH ONE (20:59)
[2023-12-27] MEDS: Morphine 4 MG/ML Syringe IVPUSH ONE ×2 (21:00→22:28)
[2023-12-27] MEDS: Sodium Chloride 0.9% 2.5 ML Syringe FLUSH PRN (21:00)
[2023-12-27] MEDS: Sodium Chloride 0.9% 10 ML Syringe FLUSH PRN (21:00)
[2023-12-27 21:05] LABS: BASOPHILS ABSOLUTE AUTO 0.06 K/uL (0.00-0.20); BASOPHILS PERCENT AUTO 0.7 % (0.0-1.0); EOSINOPHILS ABSOLUTE AUTO 0.14 K/uL (0.00-0.45); EOSINOPHILS PERCENT AUTO 1.6 % (0.0-6.0); HEMATOCRIT 39.6 % (37.0-47.0); IMMATURE GRAN ABSOLUTE AUTO 0.01 K/uL (0.00-0.05); IMMATURE GRAN PERCENT AUTO 0.1 % (0.0-0.4); LYMPHOCYTES ABSOLUTE AUTO 3.54 K/uL (1.00-4.80); LYMPHOCYTES PERCENT AUTO 40.1 % (24.0-44.0); MEAN CORPUSCULAR HGB CONC 32.8 g/dL (32.0-36.0); MEAN CORPUSCULAR VOLUME 85.3 fL (83.0-99.0); MEAN PLATELET VOLUME 11.7 fL (9.4-12.3); MONOCYTES ABSOLUTE AUTO 0.71 K/uL (0.00-0.80); NEUTROPHILS ABSOLUTE AUTO 4.36 K/uL (1.80-7.70); NEUTROPHILS PERCENT AUTO 49.5 % (41.0-71.0); PLATELET COUNT,PLT 312 K/uL (150-400); RED BLOOD CELL COUNT 4.64 M/uL (4.10-5.30); WHITE BLOOD CELL COUNT,WBC 8.82 K/uL (3.9-11.3)
[2023-12-27 21:06] LABS: APPEARANCE,URINE CLEAR; COLOR,URINE YELLOW; GLUCOSE,URINE NEGATIVE (NEGATIVE); KETONES,URINE >=80 mg/dL (NEGATIVE); LEUKOCYTE ESTERASE,URINE NEGATIVE (NEGATIVE); NITRITE,URINE NEGATIVE (NEGATIVE); OCCULT BLOOD,URINE NEGATIVE (NEGATIVE); PH,URINE 5.5 (5.0-8.0); PROTEIN,URINE NEGATIVE (NEGATIVE); UROBILINOGEN,URINE 0.2 EU/dL (<2.0)
[2023-12-27 21:20] LABS: BILIRUBIN,URINE SMALL (NEGATIVE)
[2023-12-27 21:27] LABS: A/G RATIO 0.8 (0.9-1.6); ALBUMIN 3.3 g/dL (3.4-5.0); BILIRUBIN TOTAL 0.3 mg/dL (0.2-1.0); CALCIUM 8.8 mg/dL (8.5-10.1); CARBON DIOXIDE,CO2 24.8 mmol/L (21.0-32.0); CREATININE 0.8 mg/dL (0.6-1.0); EST CRCL DRUG DOSING (CG) 68.76 mL/min; POTASSIUM,K 3.6 mmol/L (3.5-5.1); PROTEIN TOTAL,TP 7.6 g/dL (6.4-8.2)
== END 2023-12-27 22:32 | disposition home or self-care (01) ==
LOC: MW.ED 20:17
DX: K80.20 Calculus of gallbladder without cholecystitis without obstruction (principal); E66.9 Obesity, unspecified; Z79.899 Other long term (current) drug therapy; Z90.710 Acquired absence of both cervix and uterus; Z68.36 Body mass index [BMI] 36.0-36.9, adult; Z75.8 Other problems related to medical facilities and other health care
CPT/HCPCS: 36415; 76705; 80053; 81003; 83690; 85025; 96374; 96375; 96376; 99284; J1885; J2270; J2405; J3490; J7030; 93010